=== PATIENT | female | born 1970 | race African-American/Black ===

== ENCOUNTER 2020-07-07 16:05 | Outpatient (CLI) | payer OTHER ==
--- NOTE | 2020-07-07 17:49 | RAD ---
RIGHT HIP TWO VIEWS: History: Injury to right hip. FINDINGS: Joint space appears fairly well preserved. No fracture or other bony findings. Arthritic changes of t he lower lumbar spine are seen. IMPRESSION: Unremarkable right hip. POS: [facility]
== END 2020-07-07 16:06 | disposition home or self-care (01) ==
LOC: BICRAD 16:05
PROVIDERS: ATTEND Specialist
DX: S79.911A Unspecified injury of right hip, initial encounter (principal)